=== PATIENT | female | born 1930 | race Caucasian/White ===

== ENCOUNTER 2019-10-17 12:58 | Outpatient (CLI) | payer MEDICARE, OTHER ==
[2019-10-18 12:35] LABS: SARS-CoV-2 MS2 Positive; SARS-CoV-2 N Gene Negative; SARS-CoV-2 S Gene Negative; SARS-CoV-2 by NAA Not Detected (NotDetected); SARS-CoV-2 orf1ab Negative
== END 2019-10-17 12:59 | disposition home or self-care (01) ==
LOC: LABSCS 12:58
PROVIDERS: ATTEND Internal Medicine Cardiovascular Disease
DX: I35.0 Nonrheumatic aortic (valve) stenosis (principal); Z20.828 Contact with and (suspected) exposure to other viral communicable diseases
CPT/HCPCS: 87635; U0003